=== PATIENT | male | born 1960 | race Caucasian/White ===

== ENCOUNTER → 2016-10-09 19:21 | Outpatient (CLI) | payer BC ==
[2016-10-12 22:06] LABS: ANGIOTENSIN CONVERTING ENZYME 57 U/L (14-82)
== END | disposition home or self-care (01) ==
LOC: D.LABREF 19:21
PROVIDERS: Internal Medicine Pulmonary Disease
DX: R53.83 Other fatigue (principal)

== ENCOUNTER → 2017-02-24 07:39 | Outpatient (CLI) | payer BC | END | disposition home or self-care (01) | LOC: D.CT 02-20 11:30 | DX: R59.0 Localized enlarged lymph nodes (principal) ==

== ENCOUNTER → 2017-07-31 07:43 | Outpatient (CLI) | payer BC | END | disposition home or self-care (01) | LOC: D.RT 07:43 | DX: J44.9 Chronic obstructive pulmonary disease, unspecified (principal) ==

== ENCOUNTER → 2018-03-26 08:36 | Outpatient (CLI) | payer BC ==
--- NOTE | ~2018-03-26 | EC ---
PATIENT:LATHA LOAIZA DATE OF SERVICE: 03/26/18 SEX: M MEDICAL RECORD: [id number] DATE OF : 56 LOCATION:[facility] AGE OF PATIENT: 57 ADMISSION DATE: 03/26/18 REFERRING PHYSICIAN: INTERPRETING PHYSICIAN: MARY BETH QUINONEZ MD ECHOCARDIOGRAM REPORT ECHO CHARGES 4 ECHO COMPLETE Date: 03/26 CLINICAL DIAGNOSIS: PULMONARY HTN ECHOCARDIOGRAPHIC MEASUREMENTS (adult normal given) AC root (d.<3.7cm) 3.3 cm LV Septum d (<1.2 cm> 1.2 cm Valve Excursion 2.1 cm LV Septum (systole) 1.9 cm Left Atria (s.<4.0cm> 4.8 cm LVPW d(<1.2cm) 1.1 cm RV (d.<2.3cm) 2.7 cm LVPW (sytole) 2.1 cm LV diastole(<5.6CM) 6.0 cm MV E-F(>70mm/sec) cm LV systole 3.4 cm LVOT Diameter 2.0 cm MV exc.(>10mm) cm Est.ejection fraction (50-75%) % DOPPLER: LVIT cm/sec A 51.0 cm/sec E 105 cm/sec LA cm/sec RVSP 48.0 mmHg LVOT 116 cm/sec AOP1/2T m/s Asc. Ao 153 cm/sec RVOT 61.0 cm/sec RA cm/sec PA 104 cm/sec AV Gradient Peak 9.3 mmHg AV Mean 5.3 mmHg AV Area 1.8 cm MV Gradient Peak 5.1 mmHg MV Mean 1.7 mmHg MV Area cm COMMENTS: Breakdown Mill Operator: Arjun BERNARDOE Library Clerk: 1 Dr. Quinonez TAPE# PACS Pericardial Effusion N DATE OF SERVICE: 03/26/2018 PROCEDURE: Echocardiogram. FINDINGS: 1. Left ventricle chamber size is within normal limits. Left ventricular systolic function is normal. Overall ejection fraction estimated at 60%. 2. Left atrium is enlarged at 4.8 cm. Right atrium and right ventricular chamber sizes are as well mildly dilated. 3. Valvular structures have normal structure and motion. ECHOCARDIOGRAM REPORT [id number] LATHA LOAIZA 4. Doppler interrogation reveals mild mitral regurgitation, mild tricuspid regurgitation, no other valvular insufficiency or stenosis. Pulmonary systolic pressure estimated 48 mmHg. 5. No evidence of pericardial effusion or left ventricular thrombus. TRANSINT:[id number] Voice Confirmation ID: [id number] DOCUMENT ID: [id number] MARY BETH QUINONEZ MD at 1816 CC: [id number] DICTATION DATE: 03/26/18 1231 BAG MAKING MACHINE TENDER: 03/26/18 1245 REG [facility] [address] [place] [id number]
[2018-03-26 10:35] LABS: CREATININE - SERUM 0.9 mg/dL (0.6-1.3)
== END | disposition home or self-care (01) ==
LOC: D.CT 02-15 13:00 → D.LAB 02-15 14:00 → D.ECHO 08:36
PROVIDERS: Internal Medicine Pulmonary Disease
DX: I27.20 Pulmonary hypertension, unspecified (principal); R59.0 Localized enlarged lymph nodes

== ENCOUNTER → 2019-01-03 07:08 | Outpatient (CLI) | payer BC | END | disposition home or self-care (01) | LOC: D.RT 07:08 | PROVIDERS: ATTEND Internal Medicine Pulmonary Disease | DX: J45.909 Unspecified asthma, uncomplicated (principal) ==

== ENCOUNTER → 2020-12-06 10:17 | Outpatient (CLI) | payer OTHER ==
[2020-09-17 11:15] VITALS: BMI 30.4
[~2020-12-06 10:17] MED LIST: ASPIRIN81 MG PO; CEPACOL SORE T1 EAC3 PO; DECADRON4 MG PO; DULERA 100 MCG8.8 GM INH; MELATONIN 3 MG1 TAB PO; MUCINEX600 MG PO; OMNICEF300 MG PO; OSCAL D TABLET PO; PEPCID PO; TESSALON PERLE100 MG PO; VENTOLIN HFA [SP8 GM INH; VITAMIN B-1100 M1 PO; VITAMIN C PO; VITAMIN D325 MC1 PO; ZINC-220220 MG PO
== END | disposition home or self-care (01) ==
LOC: D.LAB 10:17
PROVIDERS: ATTEND Internal Medicine Pulmonary Disease
DX: Z11.52 Encounter for screening for COVID-19 (principal); Z20.822 Contact with and (suspected) exposure to COVID-19

== ENCOUNTER → 2020-12-11 09:42 | Outpatient (CLI) | payer OTHER ==
[2020-09-17 11:15] VITALS: BMI 30.4
== END | disposition home or self-care (01) ==
LOC: D.ECHO 09:00 → D.RT 09:00
PROVIDERS: ATTEND Internal Medicine Pulmonary Disease
DX: Z20.822 Contact with and (suspected) exposure to COVID-19 (principal)